=== PATIENT | female | born 1985 | race Caucasian/White ===

== ENCOUNTER → 2016-08-31 | Outpatient (CLI) | payer BC | END | disposition home or self-care (01) | LOC: M WUC 14:37 | PROVIDERS: ATTEND Advanced Practice Midwife | DX: Z34.81 Encounter for supervision of other normal pregnancy, first trimester (principal); Z36 Encounter for antenatal screening of mother; Z3A.00 Weeks of gestation of pregnancy not specified ==

== ENCOUNTER → 2016-09-02 | Outpatient (CLI) | payer BC | END | disposition home or self-care (01) | LOC: M WUC 14:59 | PROVIDERS: ATTEND Advanced Practice Midwife | DX: Z34.81 Encounter for supervision of other normal pregnancy, first trimester (principal); Z36 Encounter for antenatal screening of mother; Z3A.00 Weeks of gestation of pregnancy not specified ==

== ENCOUNTER → 2016-09-10 | Outpatient (CLI) | payer BC ==
[2016-09-10 09:51] LABS: BASO % 0.5 % (0.0-1.0); EOS # 0.3 K/mm3 (0.0-0.50); EOS % 3.7 % (0.0-3.0); LARGE UNSTAINED CELL # 0.1 K/mm3 (0.0-0.4); LARGE UNSTAINED CELL % 1.2 % (0.0-4.0); LYMPH # 1.5 K/mm3 (1.5-6.5); LYMPH % 16.5 % (24.0-44.0); MEAN CORPUSCULAR HEMOGLOBIN 30.2 pg (27.0-33.0); MEAN CORPUSCULAR HGB CONC 33.6 g/dl (32.0-36.5); MONO # 0.5 K/mm3 (0.0-0.8); MONO % 5.5 % (0.0-5.0); NEUTROPHILS # 6.2 K/mm3 (1.8-7.7); NEUTROPHILS % 72.5 % (36.0-66.0); PLATELET COUNT, AUTOMATED 226 k/mm3 (150-450); RED CELL DISTRIBUTION WIDTH 11.9 % (11.5-14.5); WHITE BLOOD COUNT 8.5 K/mm3 (4.0-10.0)
[2016-09-10 13:45] LABS: CONTROL LINE INT CTR LINE PRESENT; HIV SCRN NEGATIVE (NEGATIVE); HIV SCRN1 NEGATIVE (NEGATIVE)
[2016-09-11 10:22] LABS: HBsAg Prenatal NEGATIVE (NEGATIVE)
== END | disposition home or self-care (01) ==
LOC: M WUC 08:34
PROVIDERS: ATTEND Obstetrics & Gynecology
DX: Z34.81 Encounter for supervision of other normal pregnancy, first trimester (principal); Z36 Encounter for antenatal screening of mother; Z3A.00 Weeks of gestation of pregnancy not specified

== ENCOUNTER → 2016-11-18 | Outpatient (CLI) | payer BC ==
--- NOTE | 2016-11-19 05:32 | REP ---
Clinical: Anatomical evaluation. Comparison: None . Findings: Examination demonstrates a single live intrauterine in variable presentation. motion is identified by technologist. Placenta is noted posterior fundally and grade zero without evidence for placenta previa or abruption. Amniotic fluid volume is normal. Cervix measures 3.4 cm in length and appears closed. Nuchal cord cannot be excluded. Gestational age by LMP 18 weeks 0 days with ILIA 04/21/2017 . Gestational age by current measurements 18 weeks 5 days with ILIA 04/16/2017 . FHR equals 153 beats per minute. BPD 4.3 cm 18 weeks 6 days HC 16.3 cm 19 weeks 0 days AC 13.3 cm 18 weeks 5 days FL 2.8 cm 18 weeks 4 days HL 2.6 cm 18 weeks 2 days HC/AC ratio 1.2 through Estimated weight right 253 grams ( 75th percentile). Anatomical assessment demonstrates normal structures including cranium, choroid plexus, cavum, cerebellum/posterior fossa, facial features, lungs, four-chamber heart/ventricular outflow tracts, diaphragm, stomach, cord insertion/three-vessel cord, kidneys/bladder, spine, and extremities. Impression: Single live intrauterine in variable presentation demonstrating appropriate interval growth. Anatomical assessment is complete and normal. Nuchal cord cannot be excluded. Signed by Petar Mahajan MD 11/19/2016 05:23 A
== END ==
LOC: M RAD 09:44
PROVIDERS: ATTEND Obstetrics & Gynecology
DX: Z34.82 Encounter for supervision of other normal pregnancy, second trimester (principal)

== ENCOUNTER → 2017-01-22 | Outpatient (CLI) | payer BC ==
[2017-01-22 11:36] LABS: BASO % 0.3 % (0.0-1.0); EOS # 0.3 K/mm3 (0.0-0.50); EOS % 2.4 % (0.0-3.0); LARGE UNSTAINED CELL # 0.1 K/mm3 (0.0-0.4); LARGE UNSTAINED CELL % 1.1 % (0.0-4.0); LYMPH # 1.5 K/mm3 (1.5-6.5); LYMPH % 12.3 % (24.0-44.0); MEAN CORPUSCULAR HEMOGLOBIN 33.8 pg (27.0-33.0); MEAN CORPUSCULAR HGB CONC 35.4 g/dl (32.0-36.5); MEAN CORPUSCULAR VOLUME 95.6 fl (80.0-96.0); MONO # 0.6 K/mm3 (0.0-0.8); MONO % 5.1 % (0.0-5.0); NEUTROPHILS # 8.7 K/mm3 (1.8-7.7); NEUTROPHILS % 78.8 % (36.0-66.0); PLATELET COUNT, AUTOMATED 208 k/mm3 (150-450); RED CELL DISTRIBUTION WIDTH 13.2 % (11.5-14.5)
== END ==
LOC: M WUC 09:04
PROVIDERS: ATTEND Specialist
DX: Z36 Encounter for antenatal screening of mother (principal); Z3A.00 Weeks of gestation of pregnancy not specified

== ENCOUNTER → 2017-03-26 | Outpatient (REF) | payer BC ==
[~2017-03-26] MED LIST: COLA100C5 PO; IBUP-1114 PO; MOM30SS PO; PRENTAB9 PO
== END ==
LOC: M LAB REF 12:56
PROVIDERS: ATTEND Advanced Practice Midwife
DX: Z34.83 Encounter for supervision of other normal pregnancy, third trimester (principal); Z36 Encounter for antenatal screening of mother; Z3A.00 Weeks of gestation of pregnancy not specified

== ENCOUNTER 2017-04-24 00:57 | Inpatient (IN) | payer BC ==
[~2017-04-24] VITALS: Ht 170.2 cm; Wt 88.0 kg
[2017-04-24 02:34] LABS: MEAN CORPUSCULAR HEMOGLOBIN 33.2 pg (27.0-33.0); MEAN CORPUSCULAR HGB CONC 36.2 g/dl (32.0-36.5); MEAN CORPUSCULAR VOLUME 91.9 fl (80.0-96.0); RED CELL DISTRIBUTION WIDTH 12.7 % (11.5-14.5); WHITE BLOOD COUNT 14.4 K/mm3 (4.0-10.0)
--- NOTE | 2017-04-24 03:00 | HPE ---
DATE OF ADMISSION: 04/24/2017 Millicent is a 31-year-old 1, para 0 at 40-3/7 weeks gestation with an estimated date of confinement (EDC) of 04/29/2017 based on last menstrual period and confirmed by first trimester ultrasound. She presents to labor and delivery today with report of onset of uncomfortable contractions at approximately 1900 on the and they have progressively become more uncomfortable and close together. She denies any vaginal bleeding and leakage of fluid. Her fetus has been active. care was initiated at [facility] in the first trimester. course complicated by a history of loop electrosurgical excisional procedure (LEEP) surgery, although she did undergo transvaginal cervical length assessment and it was found to be normal throughout the . OBSTETRICAL HISTORY: Primigravida. OBSTETRICAL LABORATORIES: Blood type O positive, antibody screen negative, rubella immune, VDRL nonreactive. Urine culture no growth. Hepatitis B surface antigen negative, HIV negative. Hepatitis C antibody nonreactive. Gonorrhea and chlamydia negative. She did not have genetic serum screenings strong. Gestational diabetic screening normal at 98 and her GBS is negative. PAST MEDICAL HISTORY: 1. Abnormal Pap. 2. Childhood varicella. SURGERIES: 1. Tonsillectomy. 2. Colposcopy. 3. LEEP. FAMILY HISTORY: Diabetes, hypertension, hyperthyroid. SOCIAL HISTORY: The patient is . Her and her mother are present and supportive. She is a nonsmoker. Denies alcohol and drug use. Does report a positive history of human papillomavirus (HPV). No history of abuse physical, sexual and emotional. ALLERGIES: No known drug allergies. CURRENT MEDICATIONS: Include vitamin. OBJECTIVE: She is alert and oriented times three. She is uncomfortable, tensing with her contractions. Temperature 98.7, pulse 95, respirations 16, blood pressure 123/61. heart rate 135 with moderate variability, positive accelerations, no decelerations observed. She is pamela about every 3-4 minutes. Sterile vaginal exam: 4-5 cm dilated, 90% effaced, -1 station. Membranes are intact. Positive bloody show. Abdomen is gravid, cephalic presentation. Estimated weight 7 pounds. ASSESSMENT: Intrauterine at 40-3/7 weeks. heart rate category one and active labor. PLAN: Admit the patient to labor and delivery. Labs. Saline lock. Out of bed ad caleb. Regular diet at this time. The patient does desire to cope with her labor physiologically. I do anticipate continued progress and spontaneous vaginal delivery.
[2017-04-24] MEDS ORDERED: PROMETHAZINE INJ 25 MG/ML VIAL (J2550) As Ordered ONE (06:07)
[2017-04-24] MEDS ORDERED: BUTORPHANOL 2 MG/ML INJ (J0595) As Ordered ONE (06:08)
[2017-04-24] MEDS ORDERED: PROMETHAZINE INJ 25 MG/ML VIAL (J2550) IV ONE (07:30)
[2017-04-24] MEDS ORDERED: BUTORPHANOL 2 MG/ML INJ (J0595) IV ONE (07:30)
[2017-04-24] MEDS ORDERED: OXYTOCIN 30 UNITS IN 0.9% NaCl 500ML IV BAG (J2590) As Ordered ONE (11:48)
[2017-04-24] MEDS ORDERED: UNASYN 1.5 GM VIAL As Ordered ONE (14:11)
[2017-04-24] MEDS ORDERED: CHLOROPROCAINE 2 % INJ PRES.FREE 20 ML VIAL (J2400) As Ordered ONE (14:28)
[2017-04-24] MEDS ORDERED: PHENYLephrine HCL 500 MCG/5 ML (100MCG/ML) SYRINGE (J2370) As Ordered ONE (14:36)
[2017-04-24] MEDS ORDERED: LR 1,000 ML IV SCH (15:34)
[2017-04-24] MEDS ORDERED: MEASLES,MUMPS,RUBELLA VACCINE INJ (MMR-II) (90707) SC SCH (15:45)
[2017-04-24] MEDS ORDERED: ANUSOL HC CREAM 30GM TOP PRN (15:45)
[2017-04-24] MEDS ORDERED: RHOGAM 300 MCG (1500 IU) INJ (J2790) IM SCH (15:45)
[2017-04-24] MEDS ORDERED: PERCOCET 5MG/325MG TAB PO PRN ×2 (15:45)
[2017-04-24] MEDS ORDERED: MOM 30ML SUSPENSION UDC PO PRN (15:45)
--- NOTE | 2017-04-24 15:54 | DN ---
DATE: 04/24/2017 HISTORY: Millicent is a 31-year-old 1, para 1-0-0-1 now, who was admitted to labor and delivery in active labor. She did cope with her labor physiologically, out of bed positions, hydrotherapy and she did have some intravenous (IV) pain medications. She had spontaneous rupture of membranes at 0811. Clear fluid. She progressed to full dilation at 10:36. She did push well with coaching and support. She pushed to a normal spontaneous vaginal delivery of live male infant in left occiput anterior (VINAY) position with restitution to left occiput transverse (LOT) position with a left compound hand at 12:23. The shoulders delivered with ease and the corpus immediately followed. The was placed on maternal abdomen crying and active. His mouth and nares were bulb suctioned and he was stimulated. The cord was clamped times two and cut by the father of the baby. A spontaneous expulsion of an intact placenta with three-vessel cord by Yip mechanism was at 12:41. Uterine hemostasis was achieved with IV Pitocin rapid infusion, Methergine intramuscular (IM), Cytotec 1000 mcg per rectum and uterine fundal massage. Vagina and perineum were inspected noted to have a right vaginal sidewall laceration which also extended to her right labia. Dr. Vela was consulted for vaginal repair due to the difficulty in accessing the apex of the right side wall laceration. Several attempts were made to repair the laceration in the delivery room. Decision was then made to take the patient to the operating room (OR) for appropriate anesthesia and appropriate visualization, Dr. Vela assisted by Dr. Sanchez and myself repaired the laceration in the main OR. Total estimated blood loss between uterine bleeding and laceration was approximately 1100 mL. The male did weigh 9 pounds, scores of 9 and 10. Family have named him Andreas. Mom does plan to breastfeed and will be supported in that decision. At the close of the delivery, lap counts, needle counts, instrument counts were correct and verified.
[2017-04-24] MEDS ORDERED: LIDOCAINE 1% MDV INJ 50 ML VIAL INFIL ONE (16:15)
[2017-04-24] MEDS ORDERED: DIBUCAINE 1% OINTMENT 30GM TOP PRN (16:30)
[2017-04-24 16:41] VITALS: BP 121/74
[2017-04-24] MEDS ORDERED: METHYLERGONOVINE MALEATE 0.2 MG/ML VIAL (J2210) IM ONE (16:45)
[2017-04-24] MEDS ORDERED: miSOPROStol 200 MCG TAB (S0191) PR ONE (16:45)
[2017-04-24] MEDS: IBUPROFEN 800 MG TAB PO SCH (16:46)
[2017-04-24 17:10] VITALS: BP 114/69
[2017-04-24 18:14] VITALS: BP 118/63
[2017-04-24 19:00] VITALS: BP 110/53
[2017-04-24] MEDS: AMPICILLIN SOD/SULBACTAM SOD 3 GM in D5W MINI-BAG PLUS 100 ML IV SCH (19:55)
[2017-04-24] MEDS: DOCUSATE SODIUM 100 MG CAP PO SCH (20:33)
[2017-04-24 22:15] VITALS: BP 108/54
[2017-04-25] MEDS: IBUPROFEN 800 MG TAB PO SCH ×3 (00:52→15:45)
[2017-04-25 02:10] VITALS: BP 97/57
[2017-04-25] MEDS: AMPICILLIN SOD/SULBACTAM SOD 3 GM in D5W MINI-BAG PLUS 100 ML IV SCH ×4 (02:43→20:45)
[2017-04-25 06:00] VITALS: BP 93/54
[2017-04-25 06:28] LABS: MEAN CORPUSCULAR HEMOGLOBIN 33.3 pg (27.0-33.0); MEAN CORPUSCULAR HGB CONC 36.2 g/dl (32.0-36.5); MEAN CORPUSCULAR VOLUME 92.1 fl (80.0-96.0)
[2017-04-25] MEDS: PRENATAL VITAMINS CHEWABLE TABLET PO SCH (08:07)
[2017-04-25] MEDS: DOCUSATE SODIUM 100 MG CAP PO SCH ×2 (08:07→20:44)
[2017-04-25 10:23] VITALS: BP 111/56
--- NOTE | 2017-04-25 13:21 | RO ---
DATE OF PROCEDURE: 04/24/2017 PREPROCEDURE DIAGNOSIS: Right vaginal wall laceration, right labial laceration. POSTPROCEDURE DIAGNOSIS: Right vaginal wall laceration, right labial laceration. PROCEDURE: Repair of right vaginal wall laceration and repair of right labial laceration. SURGEON: Khalida Vela MD TOP CLEANER: Stef Sanchez MD ANESTHESIA: Spinal. ESTIMATED BLOOD LOSS: 300 mL. INTRAVENOUS FLUID: One liter of lactated Ringer's solution. INDICATION FOR OPERATION: This patient is a 31-year-old 1 who presented in active labor. She had a vaginal delivery of a liveborn male infant. Weight was 9 pounds. She initially had a hemorrhage secondary to uterine atony, which was controlled with uterine tonics. Upon evaluation of laceration, she was noted to have a deep, long right vaginal wall laceration with ischiorectal adipose tissue exposed along with the right labial laceration. Secondary to poor exposure and pain control, the patient was then urgently transported to the operating room for repair of laceration, as well as hemostasis. DESCRIPTION OF PROCEDURE: After informed consent was obtained and written consent was reviewed, we urgently proceeded with spinal anesthesia. The patient was then draped and a time-out in the operating room was then performed, identifying the patient, procedure to be performed, as well as drug allergies. A Breisky retractor as well as a right anal retractor was then placed in the vagina revealing the apex of the right vaginal wall laceration. The apex of the vaginal wall laceration was tagged using #2-0 Vicryl. The ischiorectal adipose tissue was then reduced, and the vaginal laceration was then closed using #2-0 Vicryl in a running locking fashion. There were several [id number] stitches, which were placed for hemostasis along the introitus. The right labial laceration was repaired with several interrupted sutures of #4-0 Vicryl. A vaginal pack was then placed. The patient was then taken out of lithotomy position and was taken to recovery in stable condition. She received 3 grams of Unasyn preoperatively, she will continue for at least 24 hours while vaginal pack is in place.
[2017-04-25 14:16] VITALS: BP 116/56
[2017-04-25 18:05] VITALS: BP 108/61
[2017-04-25 22:10] VITALS: BP 120/54
[2017-04-26 02:20] VITALS: BP 123/58
[2017-04-26] MEDS: AMPICILLIN SOD/SULBACTAM SOD 3 GM in D5W MINI-BAG PLUS 100 ML IV SCH (02:46)
[2017-04-26 06:30] VITALS: BP 115/62
[2017-04-26] MEDS: IBUPROFEN 800 MG TAB PO SCH ×4 (06:43→23:20)
[2017-04-26] MEDS: PRENATAL VITAMINS CHEWABLE TABLET PO SCH (09:28)
[2017-04-26] MEDS: DOCUSATE SODIUM 100 MG CAP PO SCH ×2 (09:28→21:42)
[2017-04-26 17:38] VITALS: BP 114/58
[2017-04-27 06:02] VITALS: BP 108/62
[2017-04-27] MEDS: IBUPROFEN 800 MG TAB PO SCH (07:59)
[2017-04-27] MEDS: PRENATAL VITAMINS CHEWABLE TABLET PO SCH (08:00)
[2017-04-27] MEDS: DOCUSATE SODIUM 100 MG CAP PO SCH (08:01)
[2017-04-27] MEDS ORDERED: COLA100C5 PO (09:11)
[2017-04-27] MEDS ORDERED: IBUP-1114 PO (09:11)
[2017-04-27] MEDS ORDERED: PRENTAB9 PO (09:11)
[2017-04-27] MEDS ORDERED: MOM30SS PO (09:11)
--- NOTE | 2017-05-17 15:34 | DSES ---
DATE OF ADMISSION: 04/24/2017 DATE OF DISCHARGE: 04/27/2017 DISCHARGE DIAGNOSES: 1. Vaginal delivery. 2. hemorrhage. 3. Vaginal laceration. PROCEDURES PERFORMED WHILE IN THE HOSPITAL: 1. Spinal anesthesia. 2. Repair of laceration. DISCHARGE CONDITION: Stable. HISTORY AND HOSPITAL COURSE: This patient is a 31-year-old 1 who presented at 40 weeks 3 days estimated gestational age in active labor. She had a spontaneous vaginal delivery of a live born male infant. scores of 9 and 10. Weight was 9 pounds 0 ounces. Shortly after delivery, patient had a hemorrhage secondary to uterine atony, which was managed with Methergine, Cytotec and Pitocin. Upon further evaluation, she was noted to have a laceration, very deep and long along the right vaginal wall with ischiorectal adipose tissue exposed. Secondary to poor exposure and pain control, the patient was then taken to the operating room where she underwent uncomplicated repair of this right side wall vaginal laceration. The incision was packed and after 24 hours was removed. The patient did well postoperative. By postoperative day #2 had met all the discharged criteria and was discharged home in stable condition. DISCHARGE MEDICATIONS: Ibuprofen and Percocet. DISCHARGE INSTRUCTIONS: 1. She was instructed to remain on pelvic rest. 2. She is to report severe pain, heavy vaginal bleeding, fevers, or breast feeding issues. 3. Followup in 1 week.
== END 2017-04-27 16:45 | disposition home or self-care (01) | DRG 560 ==
LOC: M LDO 00:57 → M LDI 01:32 → M OBS 16:20
PROVIDERS: ADMIT Advanced Practice Midwife; ATTEND Advanced Practice Midwife
PROC: 0KQM0ZZ Repair Perineum Muscle, Open Approach (ICD-10-PCS; 2017-04-24)
PROC: 0HQ9XZZ Repair Perineum Skin, External Approach (ICD-10-PCS; 2017-04-24)
PROC: 10E0XZZ Delivery of Products of Conception, External Approach (ICD-10-PCS; principal; 2017-04-24 13:48)
DX: O48.0 Post-term pregnancy (principal); O71.4 Obstetric high vaginal laceration alone; O72.1 Other immediate postpartum hemorrhage; Z37.0 Single live birth; Z3A.40 40 weeks gestation of pregnancy

== ENCOUNTER → 2017-05-11 | Outpatient (CLI) | payer BC ==
--- NOTE | 2017-05-11 15:51 | REP ---
LEFT FOREARM, TWO VIEWS: HISTORY: Contusion. There is no acute fracture or dislocation. The joint spaces are normal in appearance. IMPRESSION: There is no acute fracture or dislocation. Signed by Jose J Pineda MD 05/11/2017 03:53 P
--- NOTE | 2017-05-11 15:52 | REP ---
LEFT ELBOW, FOUR VIEWS: HISTORY: Contusion. There is a nondisplaced fracture of the proximal lateral radius. There is no dislocation. The joint space is normal in appearance. IMPRESSION: Nondisplaced fracture of the proximal radius. Signed by Jose J Pineda MD 05/11/2017 03:54 P
== END ==
LOC: M WUC 11:48
PROVIDERS: ATTEND Physician Assistant
DX: S50.02XA Contusion of left elbow, initial encounter (principal); S50.12XA Contusion of left forearm, initial encounter; W18.30XA Fall on same level, unspecified, initial encounter; Y92.009 Unspecified place in unspecified non-institutional (private) residence as the place of occurrence of the external cause

== ENCOUNTER → 2017-08-11 | Outpatient (REF) | payer BC ==
[2017-08-13 14:16] LABS: HPV HYBRID CAPTURE II Negative (Negative)
== END ==
LOC: M LAB REF 15:32
DX: Z12.4 Encounter for screening for malignant neoplasm of cervix (principal); Z11.51 Encounter for screening for human papillomavirus (HPV); R87.610 Atypical squamous cells of undetermined significance on cytologic smear of cervix (ASC-US)
CPT/HCPCS: G0123

== ENCOUNTER → 2018-10-19 | Outpatient (CLI) | payer BC ==
[2018-10-19 14:09] LABS: BASO # 0.1 10^3/uL (0.0-0.2); BASO % 0.6 % (0.0-1.0); EOS # 0.6 10^3/uL (0.0-0.50); EOS % 5.4 % (0.0-3.0); HEMOGLOBIN 12.7 g/dl (12.0-15.5); LYMPH # 2.1 10^3/uL (1.5-4.5); LYMPH % 20.1 % (24.0-44.0); MEAN CORPUSCULAR HEMOGLOBIN 30.2 pg (27.0-33.0); MEAN CORPUSCULAR HGB CONC 33.4 g/dl (32.0-36.5); MEAN CORPUSCULAR VOLUME 90.3 fl (80.0-96.0); MONO # 0.7 10^3/uL (0.0-0.8); MONO % 6.6 % (0.0-5.0); NEUTROPHILS # 7.1 10^3/uL (1.8-7.7); NEUTROPHILS % 67.1 % (36.0-66.0); PLATELET COUNT, AUTOMATED 233 10^3/uL (150-450); RED BLOOD COUNT 4.21 10^6/uL (4.00-5.40); WHITE BLOOD COUNT 10.6 10^3/uL (4.0-10.0)
[2018-10-19 15:31] LABS: CHLAMYDIA DNA AMPLIFICATION NEGATIVE (NEGATIVE); GC DNA AMPLIFICATION NEGATIVE (NEGATIVE)
[2018-10-19 17:00] LABS: HEPATITIS C VIRUS ABY INDEX 0.1 INDEX (<0.8); HIV 1&2 SCREEN CENTAUR NEGATIVE (NEGATIVE); RUBELLA IgG QUALITATIVE IMMUNE (IMMUNE)
== END ==
LOC: M WUC 11:14
PROVIDERS: ATTEND Obstetrics & Gynecology
DX: Z36.89 Encounter for other specified antenatal screening (principal)

== ENCOUNTER → 2018-12-22 | Outpatient (REF) | payer BC ==
[2018-12-24 14:12] LABS: HPV HYBRID CAPTURE II Negative (Negative)
== END ==
LOC: M LAB REF 17:39
PROVIDERS: ATTEND Obstetrics & Gynecology
DX: Z12.4 Encounter for screening for malignant neoplasm of cervix (principal)
CPT/HCPCS: 87624; G0123

== ENCOUNTER → 2018-12-27 | Outpatient (CLI) | payer BC ==
--- NOTE | 2018-12-27 13:56 | REP ---
Clinical: Anatomical evaluation. Comparison: None . Findings: Examination demonstrates a single live intrauterine in breech presentation. motion is identified by technologist. Placenta is noted fundal and grade grade zero without evidence for placenta previa or abruption. Amniotic fluid volume is normal. Cervix measures 4.3 cm in length and appears closed. No evidence for nuchal cord. Gestational age by LMP 18 weeks 4 days with ILIA 05/26/2019 . Gestational age by current measurements 19 weeks 3 days with ILIA 05/20/2019 . FHR equals 141 beats per minute. BPD 4.5 cm 19 weeks 4 days HC 17.1 cm 19 weeks 5 days AC 14.5 cm 90 weeks 6 days FL 2.9 cm 19 weeks 0 days HL 2.9 cm 19 weeks 3 days HC/AC ratio 1.18 Estimated weight 294 grams ( 80th percentile). Anatomical assessment demonstrates normal structures including cranium, choroid plexus, cavum, cerebellum/posterior fossa, facial features, lungs, four-chamber heart/ventricular outflow tracts, diaphragm, stomach, cord insertion/three-vessel cord, kidneys/bladder, and extremities. Impression: Single live intrauterine in breech presentation demonstrating appropriate interval growth. Limited evaluation of the spine. Remainder of the anatomical assessment is complete and normal. Electronically Signed by Petar Mahajan MD 12/27/2018 01:47 P
== END ==
LOC: M RAD 11:07
PROVIDERS: ATTEND Obstetrics & Gynecology
DX: Z34.82 Encounter for supervision of other normal pregnancy, second trimester (principal); Z36.89 Encounter for other specified antenatal screening; Z3A.18 18 weeks gestation of pregnancy

== ENCOUNTER → 2019-01-13 | Outpatient (CLI) | payer BC ==
--- NOTE | 2019-01-13 10:46 | REP ---
OBSTETRIC SONOGRAPHY: HISTORY: Supervision of followup anatomy. Spine. FINDINGS: Scanning through the gravid uterus demonstrates a viable single intrauterine gestation in a cephalic lie. motion is observed and heart rate is recorded at 147 beats per minute. A posterior grade 1 placenta is seen without evidence of previa or abruption. Amniotic fluid is subjectively normal. Closed cervical length is measured at 4.1 cm. No extrauterine abnormalities observed. There has been appropriate interval growth. spine is seen today and is felt to be unremarkable. The following additional anatomic structures are again identified and felt to be normal as well: cranium, choroid plexus, cavum, cerebellum and posterior fossa, face and profile, lungs, four-chamber heart with left and right ventricular outflow tract views, diaphragm, left-sided stomach, abdominal wall cord insertion, three-vessel cord, kidneys and bladder, upper and lower extremities. Biometry Chart: BPD 5.3 cm = 22 weeks 0 days HC 19.6 cm = 21 weeks 6 days AC 17.0 cm = 22 weeks 0 days FL 3.4 cm = 20 weeks 5 days HL 3.4 cm = 21 weeks 5 days HC/AC ratio normal 1.15. Cephalic index normal 0.74. Estimated weight 429 grams, 0 pounds 15 ounces, 64th percentile for 21 weeks 0 days. IMPRESSION: Viable single intrauterine gestation at 21 weeks 5 days by today's composite sonographic criteria. Expected gestational age estimate based on prior sonography is 21 weeks 6 days. ILIA by prior sonography May 20, 2019. anatomic survey is felt to be complete in conjunction with the prior study. Electronically Signed by Milton Roman MD 01/13/2019 03:07 P
== END ==
LOC: M RAD 09:12
PROVIDERS: ATTEND Obstetrics & Gynecology
DX: Z34.82 Encounter for supervision of other normal pregnancy, second trimester (principal); Z3A.21 21 weeks gestation of pregnancy

== ENCOUNTER → 2019-01-24 | Outpatient (CLI) | payer BC ==
--- NOTE | 2019-01-24 16:00 | REP ---
Focused ultrasound left axillary region: History: Nonspecific lump in the left breast upper outer quadrant. Near the axilla. The patient is . [place] the lump a few weeks ago. Not painful. Findings: Heterogeneous background echotexture is seen. There is a normal-appearing lymph node with a fatty hilum measuring 1.5 x 0.6 x 0.8 cm in the region. At the level of the palpable lump there is somewhat heterogeneous tissue consistent with breast tissue in the axillary tail. This measures approximately 1.5 x 0.9 x 2.0 cm. There are no suspicious sonographic features. Impression: BI-RADS category 2 benign findings. Clinical followup is advised. This negative report should not dissuade one from biopsy of a palpable lump depending on its clinical characteristics. Electronically Signed by Milton Roman MD 01/24/2019 04:24 P
== END ==
LOC: M RAD 12:43
PROVIDERS: ATTEND Obstetrics & Gynecology
DX: Z86.018 Personal history of other benign neoplasm (principal)

== ENCOUNTER → 2019-03-02 | Outpatient (CLI) | payer BC ==
[2019-03-02 13:39] LABS: HEMATOCRIT 38.3 % (36.0-47.0); HEMOGLOBIN 12.7 g/dl (12.0-15.5); MEAN CORPUSCULAR HEMOGLOBIN 32.3 pg (27.0-33.0); MEAN CORPUSCULAR HGB CONC 33.2 g/dl (32.0-36.5); MEAN CORPUSCULAR VOLUME 97.5 fl (80.0-96.0); PLATELET COUNT, AUTOMATED 183 10^3/uL (150-450); RED BLOOD COUNT 3.93 10^6/uL (4.00-5.40); WHITE BLOOD COUNT 10.8 10^3/uL (4.0-10.0)
== END ==
LOC: M WUC 08:53
PROVIDERS: ATTEND Obstetrics & Gynecology
DX: Z34.82 Encounter for supervision of other normal pregnancy, second trimester (principal)

== ENCOUNTER → 2019-05-04 | Outpatient (REF) | payer BC | LOC: M LAB REF 16:42 | PROVIDERS: ATTEND Obstetrics & Gynecology | DX: Z36.85 Encounter for antenatal screening for Streptococcus B (principal) ==

== ENCOUNTER 2019-05-17 01:18 | Inpatient (IN) | payer BC ==
[2019-05-17] VITALS (17 sets, daily range): BP systolic 106–133; BP diastolic 55–80
[~2019-05-17] VITALS: Ht 170.2 cm; Wt 79.5 kg
[2019-05-17 02:55] LABS: HEMATOCRIT 36.2 % (36.0-47.0); HEMOGLOBIN 12.4 g/dl (12.0-15.5); MEAN CORPUSCULAR HEMOGLOBIN 31.7 pg (27.0-33.0); MEAN CORPUSCULAR HGB CONC 34.3 g/dl (32.0-36.5); MEAN CORPUSCULAR VOLUME 92.6 fl (80.0-96.0); PLATELET COUNT, AUTOMATED 149 10^3/uL (150-450); RED BLOOD COUNT 3.91 10^6/uL (4.00-5.40)
[2019-05-17] MEDS ORDERED: LR 1,000 ML IV SCH (06:39)
[2019-05-17] MEDS ORDERED: OXYTOCIN DRIP 30 UNITS in IV 1 EA IV SCH ×3 (06:45→12:00)
[2019-05-17] MEDS ORDERED: FENTANYL 2MCG/ML ROPIVACAINE 0.2% IN 0.9% NACL 100ML IVBAG As Ordered ONE (07:25)
--- NOTE | 2019-05-17 07:34 | HPE ---
DATE OF ADMISSION: 05/17/2019 REASON FOR ADMISSION: Spontaneous rupture of membranes. HISTORY OF PRESENT ILLNESS: Patient is a 34-year-old 2, para 1 who presents at 38 weeks 5 days estimated gestational age by last menstrual period confirmed by first trimester ultrasound with reports of leakage of fluid. She reports having a large gush of fluid at approximately 9:30 last night that has continued. This is followed with contractions several hours later. She reports active movements. Denies any vaginal bleeding. Her course has been unremarkable. She initiated care in the first trimester and has been appropriate throughout. PAST MEDICAL HISTORY: None. PAST SURGICAL HISTORY: She has had a loop electrosurgical excision procedure (LEEP) in 2004. OBSTETRICAL HISTORY: She is 4, para 1. She has had one term vaginal delivery that was complicated by hemorrhage. She is proven at 9 pounds. ALLERGIES: She has no known drug allergies. SOCIAL HISTORY: She denies any alcohol, tobacco or drug use during the and she lives at home with her and her son. PHYSICAL EXAMINATION: Vital signs: Stable. She is afebrile. heart rate 130s with moderate variability. Spontaneous accelerations. No decelerations. Contractions approximately every 5 minutes. General appearance: Well appearing, no acute distress. Lungs: Clear to auscultation bilaterally. Cardiovascular: Heart regular rate and rhythm. Abdomen is gravid, nontender. Cervical examination: She is 4 cm dilated, 50% effaced, -2 station, grossly ruptured Nitrazine positive. LABORATORY DATA: Blood type is O+, antibody screen is negative. Rubella is immune. RPR nonreactive. Hepatitis surface antigen negative. HIV is negative. Hepatitis C is nonreactive. Chlamydia, gonorrhea screens are negative. She had a 1-hour Glucola, which was normal and she is GBS negative. ASSESSMENT: 1. This patient is a 34-year-old 2, para 1 at 38 weeks 5 days estimated gestation with spontaneous rupture of membranes. 2. Reassuring status. PLAN: 1. Admit to labor and delivery CBC, RPR, type and screen. 2. Patient has been counseled for potential augmentation of labor with Pitocin. She has also verbally consented for emergency surgery, blood products, anesthesia. 3. Anticipate spontaneous vaginal delivery.
[2019-05-17] MEDS ORDERED: IBUPROFEN 600 MG TAB PO PRN (09:00)
[2019-05-17] MEDS ORDERED: RHOGAM 300 MCG (1500 IU) INJ (J2790) IM SCH (09:00)
[2019-05-17] MEDS ORDERED: MEASLES,MUMPS,RUBELLA VACCINE INJ (MMR-II) (90707) SC SCH (09:00)
[2019-05-17] MEDS ORDERED: METHYLERGONOVINE MALEATE 0.2 MG TAB PO PRN (09:00)
[2019-05-17] MEDS ORDERED: DOCUSATE SODIUM 100 MG CAP PO PRN (09:00)
[2019-05-17] MEDS: PRENATAL VITAMINS CHEWABLE TABLET PO SCH (09:00)
[2019-05-17] MEDS ORDERED: DIBUCAINE 1% OINTMENT 30GM TOP PRN (09:00)
[2019-05-17] MEDS ORDERED: ACETAMINOPHEN TAB 650MG DOSE (2X325MG) PO PRN (09:00)
[2019-05-17] MEDS ORDERED: ANUSOL HC CREAM 30GM TOP PRN (09:00)
[2019-05-17] MEDS ORDERED: ACETAMINOPHEN 500 MG TAB PO PRN (09:00)
[2019-05-17] MEDS ORDERED: IBUPROFEN 800 MG TAB PO PRN (09:00)
--- NOTE | 2019-05-17 09:02 | DN ---
DATE: 05/17/2019 Millicent is a 34-year-old 2, para 2-0-0-2 now who was admitted to labor and delivery with spontaneous rupture of membranes in latent labor. She progressed physiologically with her labor and coped with her labor with out of bed positions and breathing techniques she reached complete dilation at 0820. She pushed to a normal spontaneous vaginal delivery of a live female in OA position with restitution to LOT position at 0823. There was no nuchal cord. The shoulders delivered spontaneously and the corpus immediately followed. The female mouth and nares were bulb suctioned and she was placed on maternal abdomen crying and active. The cord was clamped times two once pulsations ceased and cut by the father of the baby under my direction. Spontaneous expulsion of an intact placenta with three-vessel cord by Yip mechanism was at 0827. Uterine hemostasis achieved with IV Pitocin rapid infusion and uterine fundal massage. Estimated blood loss 300 mL. Perineum and vagina were inspected noted to be intact. female weighed 8 pounds 8 ounces, 3860 grams, 9 and 9. Mom is going to breastfeed her daughter the family have named their daughter Yola. At the close of delivery lap counts and instrument counts were correct and verified.
[2019-05-17] MEDS ORDERED: OXYTOCIN 30 UNITS IN 0.9% NaCl 500ML IV BAG (J2590) As Ordered ONE (11:46)
[2019-05-17] MEDS ORDERED: OXYTOCIN DRIP 30 UNITS in IV 1 EA IV STA (11:50)
[2019-05-17] MEDS ORDERED: miSOPROStol 200 MCG TAB (S0191) PR ONE (13:00)
[2019-05-17] MEDS ORDERED: AMPICILLIN SOD/SULBACTAM SOD 3 GM in D5W MINI-BAG PLUS 100 ML IV ONE (13:00)
[2019-05-17] MEDS ORDERED: METHYLERGONOVINE MALEATE 0.2 MG/ML VIAL (J2210) IM ONE (13:00)
[2019-05-18 06:00] VITALS: BP 103/56
[2019-05-18] MEDS: PRENATAL VITAMINS CHEWABLE TABLET PO SCH (07:33)
== END 2019-05-18 11:30 | disposition home or self-care (01) | DRG 560 ==
LOC: M LDO 01:18 → M LDI 02:06 → M OBS 11:10
PROVIDERS: ADMIT Obstetrics & Gynecology; ATTEND Advanced Practice Midwife
PROC: 10E0XZZ Delivery of Products of Conception, External Approach (ICD-10-PCS; principal; 2019-05-17)
DX: O80 Encounter for full-term uncomplicated delivery (principal); Z3A.38 38 weeks gestation of pregnancy; Z37.0 Single live birth

== ENCOUNTER → 2022-07-10 | Outpatient (REF) | payer BC | LOC: M PLALAB 15:08 | PROVIDERS: ATTEND Advanced Practice Midwife | DX: Z53.20 Procedure and treatment not carried out because of patient's decision for unspecified reasons (principal) ==

== ENCOUNTER → 2022-07-15 | Outpatient (REF) | payer BC ==
[2022-07-15 11:41] LABS: HEMATOCRIT 38.2 % (36.0-47.0); HEMOGLOBIN 12.9 g/dl (12.0-15.5); MEAN CORPUSCULAR HGB CONC 33.8 g/dl (32.0-36.5); MEAN CORPUSCULAR VOLUME 88.8 fl (80.0-96.0); PLATELET COUNT, AUTOMATED 203 10^3/uL (150-450); WHITE BLOOD COUNT 9.3 10^3/uL (4.0-10.0)
[2022-07-15 12:35] LABS: HIV 1&2 SCREEN CENTAUR NEGATIVE (NEGATIVE)
[2022-07-15 12:43] LABS: HEPATITIS C VIRUS ABY INDEX 0.1 INDEX (<0.8)
[2022-07-15 13:10] LABS: GC DNA AMPLIFICATION NEGATIVE (NEGATIVE)
== END ==
LOC: M PLALAB 07:11
PROVIDERS: ATTEND Advanced Practice Midwife
DX: Z34.91 Encounter for supervision of normal pregnancy, unspecified, first trimester (principal)

== ENCOUNTER → 2022-09-03 | Outpatient (CLI) | payer BC | LOC: M WHC 09:45 | PROVIDERS: ATTEND Obstetrics & Gynecology | DX: Z34.92 Encounter for supervision of normal pregnancy, unspecified, second trimester (principal) ==

== ENCOUNTER → 2022-12-21 | Outpatient (REF) | payer BC | LOC: M SFHCWAGY 12:47 | PROVIDERS: ATTEND Advanced Practice Midwife | DX: Z3A.36 36 weeks gestation of pregnancy (principal) ==

== ENCOUNTER 2023-01-17 15:03 | Inpatient (IN) | payer BC ==
[~2023-01-17] VITALS: Ht 170.2 cm; Wt 79.1 kg
[2023-01-17] VITALS (9 sets, daily range): BP systolic 108–126; BP diastolic 57–71; TEMP 98.2–98.4; O2SAT 97
[2023-01-17 15:39] LABS: HEMATOCRIT 42.7 % (36.0-47.0); HEMOGLOBIN 14.5 g/dl (12.0-15.5); MEAN CORPUSCULAR HEMOGLOBIN 31.3 pg (27.0-33.0); MEAN CORPUSCULAR VOLUME 92.2 fl (80.0-96.0); PLATELET COUNT, AUTOMATED 204 10^3/uL (150-450); RED BLOOD COUNT 4.63 10^6/uL (4.00-5.40); WHITE BLOOD COUNT 15.4 10^3/uL (4.0-10.0)
[2023-01-17] MEDS ORDERED: LIDOCAINE 1% MDV 20ML VIAL INFIL PRN (15:45)
[2023-01-17] MEDS ORDERED: OXYTOCIN DRIP 30 UNITS in IV 1 EA IV PRN (15:45)
[2023-01-17] MEDS ORDERED: TRANEXAMIC ACID INJection 1,000 MG in NS 100 ML IV PRN (15:45)
[2023-01-17] MEDS ORDERED: METHYLERGONOVINE MALEATE 0.2MG/ML 1ML VIAL IM PRN (15:45)
[2023-01-17] MEDS ORDERED: DIBUCAINE 1% OINTMENT 30GM TOP PRN (18:20)
[2023-01-17] MEDS ORDERED: ACETAMINOPHEN 500 MG TAB PO PRN (18:20)
[2023-01-17] MEDS ORDERED: RHOGAM 300MCG (1500IU) INJ IM SCH (18:20)
[2023-01-17] MEDS ORDERED: MOM 30ML SUSPENSION UDC PO PRN (18:20)
[2023-01-17] MEDS ORDERED: ACETAMINOPHEN TAB 650MG DOSE (2X325MG) PO PRN (18:20)
[2023-01-17] MEDS ORDERED: ANUSOL HC CREAM 30GM TOP PRN (18:20)
[2023-01-17] MEDS ORDERED: METHYLERGONOVINE MALEATE 0.2 MG TAB PO PRN (18:20)
[2023-01-17] MEDS ORDERED: IBUPROFEN 600MG TAB PO PRN (18:20)
[2023-01-17] MEDS ORDERED: IBUPROFEN 800 MG TAB PO PRN (18:20)
[2023-01-17] MEDS ORDERED: DOCUSATE SODIUM 100MG CAPSULE PO PRN (18:20)
[2023-01-17] MEDS ORDERED: OXYTOCIN DRIP 30 UNITS in IV 1 EA IV SCH (18:20)
[2023-01-17] MEDS ORDERED: OXYTOCIN DRIP 30 UNITS in IV 1 EA IV ONE (18:45)
[2023-01-18 05:51] VITALS: BP 110/61; O2SAT 97
[2023-01-18] MEDS: PRENATAL VITAMINS CHEWABLE TABLET PO SCH (08:15)
[2023-01-18 17:54] VITALS: BP 107/61; O2SAT 80
[2023-01-19 06:00] VITALS: BP 93/50; O2SAT 99
[2023-01-19] MEDS: PRENATAL VITAMINS CHEWABLE TABLET PO SCH (09:00)
[2023-01-19] MEDS ORDERED: MEASLES,MUMPS,RUBELLA VACCINE INJ (MMR-II) SC.IMMUN ONE (09:00)
[2023-01-19] MEDS ORDERED: IBUP80TA PO (11:31)
[2023-01-19] MEDS ORDERED: ACET-683 PO (11:31)
== END 2023-01-19 13:00 | disposition home or self-care (01) | DRG 560 ==
LOC: M LDO 15:03 → M LDI 15:25 → M OBS 20:47
PROVIDERS: ADMIT Obstetrics & Gynecology; ATTEND Obstetrics & Gynecology
PROC: 10E0XZZ Delivery of Products of Conception, External Approach (ICD-10-PCS; principal; 2023-01-17)
DX: O80 Encounter for full-term uncomplicated delivery (principal); Z37.0 Single live birth; Z3A.39 39 weeks gestation of pregnancy

== ENCOUNTER → 2024-02-10 | Outpatient (CLI) | payer OTHER ==
[~2024-02-10] MED LIST changes: +ACET-683 PO; +IBUP80TA PO
== END ==
LOC: M WUC 10:55
PROVIDERS: ATTEND Student in an Organized Health Care Education/Training Program
DX: M79.672 Pain in left foot (principal)

== ENCOUNTER → 2024-02-21 | Outpatient (REF) | payer OTHER | LOC: M SFHCWAGY 17:21 | PROVIDERS: ATTEND Advanced Practice Midwife | DX: Z12.4 Encounter for screening for malignant neoplasm of cervix (principal); Z01.419 Encounter for gynecological examination (general) (routine) without abnormal findings; Z77.9 Other contact with and (suspected) exposures hazardous to health ==

== ENCOUNTER 2024-03-01 19:29 | Emergency (ER) | payer OTHER ==
[~2024-03-01] VITALS: Ht 170.2 cm; Wt 61.4 kg
[2024-03-01 19:29] VITALS: TEMP 98
[2024-03-01 20:15] LABS: BASO # 0.1 10^3/uL (0.0-0.2); BASO % 0.3 % (0.0-1.0); EOS # 0.4 10^3/uL (0.0-0.5); EOS % 2.3 % (0.0-3.0); HEMATOCRIT 39.1 % (36.0-47.0); HEMOGLOBIN 13.2 g/dl (12.0-15.5); LYMPH # 1.9 10^3/uL (1.5-5.0); LYMPH % 12.2 % (24.0-44.0); MEAN CORPUSCULAR HEMOGLOBIN 29.6 pg (27.0-33.0); MEAN CORPUSCULAR HGB CONC 33.8 g/dl (32.0-36.5); MEAN CORPUSCULAR VOLUME 87.7 fl (80.0-96.0); MONO # 0.9 10^3/uL (0.0-0.8); MONO % 6.1 % (2.0-8.0); NEUTROPHILS % 78.8 % (36.0-66.0); PLATELET COUNT, AUTOMATED 207 10^3/uL (150-450); RED BLOOD COUNT 4.46 10^6/uL (4.00-5.40); WHITE BLOOD COUNT 15.3 10^3/uL (4.0-10.0)
[2024-03-01 20:17] LABS: URINE PREG TEST NEGATIVE (NEGATIVE)
[2024-03-01] MEDS: NS 1,000 ML IV ONE (20:20)
[2024-03-01 20:38] LABS: LIPASE 32 U/L (12-53)
[2024-03-01 20:40] LABS: ALBUMIN 4.4 G/DL (3.2-5.2); ALKALINE PHOSPHATASE 72 U/L (46-116); ALT/SGPT 19 U/L (7.0-40); AST/SGOT 13 U/L (<34); BILIRUBIN,DIRECT 0.6 MG/DL (<0.4); BILIRUBIN,TOTAL 2.2 MG/DL (0.3-1.2); BLOOD UREA NITROGEN 19 MG/DL (9-23); CALCIUM LEVEL 9.3 MG/DL (8.5-10.1); CARBON DIOXIDE LEVEL 27 MMOL/L (20-31); CHLORIDE LEVEL 107 MMOL/L (98-107); CREATININE FOR GFR 0.71 MG/DL (0.55-1.30); GLOMERULAR FILTRATION RATE > 60.0 (>60); GLUCOSE, FASTING 97 MG/DL (60-100); POTASSIUM SERUM 3.7 MMOL/L (3.5-5.1); SODIUM LEVEL 140 MMOL/L (136-145); TOTAL PROTEIN 6.7 G/DL (5.7-8.2)
[2024-03-01 21:50] LABS: GC DNA AMPLIFICATION NEGATIVE (NEGATIVE)
[2024-03-01] MEDS: GASTROGRAFIN SOLUTION 30ML PO SCH (22:30)
[2024-03-01] MEDS ORDERED: ISOVUE-370 76% 100ML VIAL As Ordered ONE (23:54)
[2024-03-02] MEDS ORDERED: COLA100C5 PO (01:50)
[2024-03-02 02:02] VITALS: BP 110/50; O2SAT 100
== END 2024-03-02 02:03 | disposition home or self-care (01) ==
LOC: M ED 19:29
DX: K59.00 Constipation, unspecified (principal); Z88.1 Allergy status to other antibiotic agents; Z79.1 Long term (current) use of non-steroidal anti-inflammatories (NSAID); Z79.810 Long term (current) use of selective estrogen receptor modulators (SERMs)
CPT/HCPCS: 74177; 76856; 80048; 80076; 81001; 83690; 84703; 85025; 87210; 87810; 87850; 93041; 93976; 96360; 96361; 99285; Q9963; Q9967

== ENCOUNTER → 2025-07-09 | Outpatient (REF) | payer OTHER ==
[2025-07-11 14:17] LABS: HPV APTIMA Not Detected (Not Detected)
== END ==
LOC: M PLALAB 11:54
PROVIDERS: ATTEND Advanced Practice Midwife
DX: Z12.4 Encounter for screening for malignant neoplasm of cervix (principal)
CPT/HCPCS: 87624; G0123